=== PATIENT | male | born 1965 | race Caucasian/White ===

== ENCOUNTER 2017-03-14 10:02 | Day surgery (SDC) | payer BC ==
[2017-03-09 08:25] VITALS: BMI 27.3
[~2017-03-14 10:02] MED LIST: LACTATED RINGERS 1,000 ML IV SCH
[2017-03-14 10:25] VITALS: RESP 16; TEMP 98
[2017-03-14] MEDS ORDERED: LIDOCAINE 1% 20 ML VIAL (10MG/ML) FOR IV START INTRADERMA ONE (10:26)
[2017-03-14] MEDS ORDERED: PROPOFOL 10 MG/ML 20 ML VIAL IV ONE (11:41)
[2017-03-14] MEDS ORDERED: LIDOCAINE 1% INJ 10MG/ML (20 ML MDV) ONE (11:41)
--- NOTE | 2017-03-14 11:42 | P.GSHP ---
History of Present Illness H&P Date: 03/14/17 Chief Complaint: GI bleed This a 51-year-old male referred from Dr. Raymundo. Patient is today for colonoscopy. He had issues with GI bleed. Past Medical History Past Medical History: No Reported History Additional Past Medical History / Comment(s): hx heart murmer, "slow heart rate ", hemorrhoids, History of Any Multi-Drug Resistant Organisms: None Reported Past Surgical History: Hernia Repair, Orthopedic Surgery Additional Past Surgical History / Comment(s): rt hand surgery, rt shoulder surgery, neck fusion, left femur(fx)craig, COLONOSCOPY Past Anesthesia/Blood Transfusion Reactions: No Reported Reaction Smoking Status: Former smoker - Past Family History Mother Family Medical History: Cancer Additional Family Medical History / Comment(s): BREAST CANCER Medications and Allergies Home Medications Medication Instructions Recorded Confirmed Type No Known Home Medications [No 08/24/16 03/09/17 History Known Home Medications] Allergies Allergy/AdvReac Type Severity Reaction Status Date / Time No Known Allergies Allergy Verified 03/09/17 08:21 Surgical - Exam Vital Signs Temp Pulse Resp BP Pulse Ox 98.0 F 48 L 16 117/76 97 03/14/17 10:18 03/14/17 10:18 03/14/17 10:18 03/14/17 10:18 03/14/17 10:18 - General well developed, no distress - Eyes PERRL - ENT normal pinna - Neck no masses - Respiratory normal expansion - Cardiovascular Rhythm: regular - Abdomen Abdomen: soft, non tender Assessment and Plan Plan: GI bleed. We'll perform colonoscopy.
--- NOTE | 2017-03-14 12:00 | P.OP ---
Date of Procedure: 03/14/17 Preoperative Diagnosis: GI bleed Postoperative Diagnosis: Mild diverticulosis Procedure(s) Performed: Colonoscopy Implants: Anesthesia: MAC Surgeon: Shade Kate Pathology: none sent Condition: stable Disposition: PACU Indications for Procedure: Operative Findings: Description of Procedure: Patient's placed on the endoscopy table lateral position. He received IV sedation. Digital rectal exam was performed which revealed no abnormalities. The prostate was symmetric without nodules. The flexible colonoscope was then placed patient anus passed throughout the entire colon. The ileocecal valve was visualized. The cecum, ascending and transverse colon appeared normal. In the descending; was mild diverticular changes. Scope was then brought back the rectum and this appeared normal. Scope was withdrawn for patient.
[2017-03-14 12:25] VITALS: BP 123/79; PULSE 53
== END 2017-03-14 12:55 | disposition home or self-care (01) ==
LOC: ORWHC2ENDO 10:02
PROVIDERS: ATTEND Surgery
DX: K57.30 Diverticulosis of large intestine without perforation or abscess without bleeding (principal); Z87.891 Personal history of nicotine dependence
CPT/HCPCS: 45378; J2001; J2704